=== PATIENT | male | born 1950 | race Caucasian/White ===

== ENCOUNTER 2017-01-29 23:40 | Emergency (ER) | payer MEDICARE, OTHER ==
[~2017-01-29 23:40] MED LIST: AMBIEN DPS5 MG PO; CARDIZEM CD DP120 MG PO; CELEBREX200 MG PO; COMPAZINE10 MG PO; DULCOLAX-DPS5 MG PO; FEOSOL-DPS325 MG PO; FLEXERIL-DPS10 MG PO; FLOMAX DPS0.4 MG PO; LEXAPRO DPS10 MG PO; MIRALAX PACKET17 GM PO; MULTAQ400 MG PO; NORCO 5-325 TA1 EACH PO; OMEGA-3 DPS1000 MG PO; OXY IR DPS5 MG PO; PRILOSEC DPS20 MG PO; SENOKOT S1 TAB PO; SLO NIACIN DPS500 MG PO; SURFAK DPS240 MG PO; TUMS DPS500 MG PO; TYLENOL DPS325 MG PO; ULORIC40 MG PO; ULTRAM DPS50 MG PO; XARELTO20 MG PO; ZOCOR DPS20 MG PO; ZOFRAN4 MG PO
--- NOTE | 2017-02-02 19:04 | ER ---
ADMIT: 01/29/2017 RM/LOC: ER [facility] MR#: [id number] [address] [facility] [address] [place] [address] Emergency Room Report SEX: M AGE: 66 : 1950 DATE: 01/29/2017 CHIEF COMPLAINT: Dizziness. HISTORY OF PRESENT ILLNESS: A 66-year-old male, who presents via EMS after persistent dizziness at home. He states he took his Ambien, was working on his sink, bend over. He stood up and began feeling dizzy. Denies any weakness in extremities. Does state he initially has a sense of spinning; however, does not sound vertiginous at this point. His descriptions are quite vague. States this happened about an hour prior to arrival. Denies any hearing loss, ringing in the ears. No nausea, vomiting, headache, weakness, numbness in extremities. He did not lose consciousness. He was not syncopal or presyncopal. He states when he was in his house, he was feeling off balance. He typically walks without assistance. At this time, he called EMS, states this dizziness is worse with movement and changing position of his head. PAST MEDICAL HISTORY: Atrial fibrillation, on chronic anticoagulation with Xarelto. Takes simvastatin for some hyperlipidemia, Ambien for some insomnia issues. Denies any recent illness, shortness of breath, cough, problems with vision, abdominal pain, problems urinating. COURSE IN THE EMERGENCY ROOM: GENERAL: The patient was examined. He is afebrile and nontoxic. No acute distress. He is somnolent; however, cooperative and appropriate for exam. HEENT: Eyes are equal and reactive. Extraocular muscle testing intact. No evidence of nystagmus on exam. Bilateral eardrums are blocked with cerumen. NECK: Supple. No meningismus, lymphadenopathy. RESPIRATORY: Lungs are clear bilaterally. No wheeze, rhonchi, or rales. HEART: Regular. No murmur. ABDOMEN: Soft, nontender. SKIN: Warm and dry. EXTREMITIES: No pedal edema. NEURO: He is alert and oriented, cooperative to exam. He has normal speech. His mood is appropriate. Cranial nerves are normal. No evidence of any acute CVA. Finger to nose testing is normal. He has good strength in upper and lower extremities compared bilaterally. Sensation is intact to light touch. ADMIT: 01/29/2017 RM/LOC: [facility] MR#: [id number] [address] [facility] [address] [place] [address] Emergency Room Report SEX: M AGE: 66 : 1950 Orthostatics were checked, unremarkable. EKG shows sinus bradycardia with some prolonged WA interval. No ST-T or Q-wave abnormalities. CBC shows white count 5.7, hemoglobin 13.4, hematocrit of 40.2, platelets 183. Sodium 143, potassium 3.7, CO2 of 27, glucose 117, creatinine 1.1. Liver enzymes normal. Troponin unremarkable. Urine is pending at this time. I did give him meclizine 50 mg p.o. I re-evaluated. He states his dizziness persists. I did recommend further evaluation with CT head, which is pending at this time. I did do bilateral cerumen disimpactions in his ears, was able to visualize tympanic membranes after this. No signs of acute infection. Tympanic membranes are pearly white bilaterally. Hearing is intact. CT head pending, as well as urine at this time. I handed this patient off to Dr. Erickson for further disposition. JF Haywood / Jc Erickson MD / mike JOB #: [id number] CC: Jc Erickson MD, Attending Physician Lokesh Sanders MD, Family Physician
== END 2017-01-30 02:11 | disposition home or self-care (01) ==
LOC: ER 23:40
DX: R42 Dizziness and giddiness (principal); I48.91 Unspecified atrial fibrillation; Z79.899 Other long term (current) drug therapy

== ENCOUNTER 2017-01-30 11:31 | Emergency (ER) | payer MEDICARE ==
--- NOTE | 2017-02-03 07:41 | ER ---
ADMIT: 01/30/2017 RM/LOC: ER [facility] MR#: [id number] [address] [facility] [address] [place] [address] Emergency Room Report SEX: M AGE: 66 : 1950 DATE: 01/30/2017 TIME: 1131 hours. PRIMARY CARE: Lokesh Sanders MD Please refer to my T-sheet for complete H and P. HISTORY OF PRESENT ILLNESS: Briefly, the patient is a 66-year-old, who comes back in with dizzy. He is actually seen in the ER within 24 hours. Diagnosed with vertigo. Had a CAT scan and blood work. Everything looked okay. Given meclizine. He has not filled the prescription. He says he just feels like the room is spinning. If he holds still, it is not too bad. He does not feel like he is going to pass out. More of a vertigo type thing and they did actually wax out of his ears last night. PHYSICAL EXAMINATION: VITAL SIGNS: His vital signs here are stable. HEENT: He has a little bit inflammation of his right external auditory canal where they removed the wax and a little bit of fluid behind the ear. NEURO EXAM: Essentially vertigo. EMERGENCY DEPARTMENT COURSE: Uneventful. I gave him a dose of Valium. He is ready for discharge. ASSESSMENT: 1. Vertigo. 2. Cerumen impaction, which was resolved last night. PLAN: Continue meclizine and Valium. Follow up with Dr. Sanders this week. Return if worse. Fall precautions. Amilcar Villanueva MD/ mike JOB #: [id number] CC: Amilcar Villanueva MD, Attending Physician UNKNOWN, Family Physician
== END 2017-01-30 13:10 | disposition home or self-care (01) ==
LOC: ER 11:31
DX: R42 Dizziness and giddiness (principal); H61.20 Impacted cerumen, unspecified ear; I10 Essential (primary) hypertension; E78.5 Hyperlipidemia, unspecified; Z79.899 Other long term (current) drug therapy

== ENCOUNTER → 2017-02-04 | Outpatient (CLI) | payer MEDICARE ==
--- NOTE | 2017-02-08 13:55 | SS ---
ADMIT: 02/04/2017 RM/LOC: [facility] MR#: [id number] [address] [facility] [address] [place] [address] Sleep Study SEX: M AGE: 66 : 1950 STUDY DATE: 02/04/2017 CLINICAL HISTORY: A 66-year-old male, body mass index 31.1, 72 inches, 229 pounds with known history of obstructive and central sleep apnea, in the sleep lab for retitration. TECHNICAL DESCRIPTION: CPAP BiPAP titration performed on night of 02/04/2017, attended by a trained special procedure technologist. TITRATION FINDINGS: TITRATION DESCRIPTION: The patient was titrated from 11 cm CPAP to 19 cm of CPAP demonstrated on BiPAP from over . A [employer] AirFit F10 medium mask was used as interface. SLEEP: Total time in bed is 396 minutes, total sleep time 341 minutes, sleep efficiency 86.1%. 42.5% hours spent in stage II sleep, 13.8% hours spent in stage REM. BREATHING: Ongoing obstructive hypopneas were seen throughout the CPAP titration. The patient failed CPAP because of ongoing obstructive hypopneas in spite of titrating up to 19 cm. On BiPAP at , excellent resolution of obstructive events was seen. The patient was seen in REM sleep in lateral position. REM supine sleep was not seen. OXYGEN SATURATION: Mean sleeping oxygen saturation 93%. CARDIAC: Average heart rate is 52 beats per minute. MOVEMENTS/POSITION: During the study, the patient slept predominantly in the lateral position, brief time in the supine position. IMPRESSION AND PLAN: CPAP/BiPAP titration reveals that the patient failed CPAP because of ongoing obstructive hypopneas in spite of titrating up to CPAP 19 cm. On BiPAP at , excellent resolution of obstructive sleep apnea was seen. The patient was seen in REM sleep in lateral position. REM supine sleep was not seen. I would recommend using BiPAP at 21 over 17 with mask as mentioned above. Recommend losing weight, avoiding sedatives or alcohol. Refrain from driving if excessively sleepy. Recommend avoiding sleeping in supine position. Clinical correlation needed. Compliance followup is recommended. Dae Mendez MD/ mike JOB #: [id number] CC: Dae Mendez MD, Attending Physician ADMIT: 02/04/2017 RM/LOC: [facility] MR#: [id number] [address] [address] [facility] [address] [place] [address] Sleep Study SEX: M AGE: 66 : 1950 Dae Mendez MD, Family Physician
== END | disposition home or self-care (01) ==
LOC: RESC 20:00
DX: G47.33 Obstructive sleep apnea (adult) (pediatric) (principal); G47.31 Primary central sleep apnea